=== PATIENT | female | born 1960 | race Asian ===

== ENCOUNTER 2018-10-27 17:24 | Emergency (ER) | payer BC ==
[~2018-10-27] VITALS: Ht 162.6 cm; Wt 65.8 kg
[2018-10-27 17:27] VITALS: BP_SYST 155
--- NOTE | 2018-10-27 17:35 | NUR ---
Patient to ER bed 04 to gown for evaluation. Side rails up.
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
[2018-10-27] MEDS ORDERED: MECLIZINE HCL 25 MG TABLET (ANITVERT) PO ONE (17:45)
[2018-10-27] MEDS ORDERED: LORazepam 1 MG TABLET PO ONE (17:45)
--- NOTE | 2018-10-27 17:45 | NUR ---
Dr Kong at bedside examining patient.
--- NOTE | 2018-10-27 18:05 | NUR ---
Pt off the unit for CT
[2018-10-27] MEDS ORDERED: ONDANSETRON 4 MG ODT TAB PO ONE (18:15)
--- NOTE | 2018-10-27 18:15 | NUR ---
Pt returned from CT, emesis x [address], MD notified
--- NOTE | 2018-10-27 18:22 | NUR ---
Pt medicated for N/V as ordered, well tolerated.
[2018-10-27 18:30] LABS: BASOPHILS % (AUTO) 0.3 % (0.0-2.0); EOSINOPHILS % (AUTO) 0.4 % (0.0-4.0); HEMATOCRIT 40.4 % (36-48); HEMOGLOBIN 13.6 g/dL (12.0-16.0); LYMPHOCYTES # (AUTO) 1.3 K/uL (1.0-5.5); LYMPHOCYTES % (AUTO) 19.4 % (20.5-51.5); MEAN CORPUSCULAR HEMOGLOBIN 31 pg (27-31); MEAN CORPUSCULAR HGB CONC 34 % (32-36); MEAN CORPUSCULAR VOLUME 92 fL (79.0-98.0); MONOCYTES # (AUTO) 0.3 K/uL (0.0-1.0); MONOCYTES % (AUTO) 4.2 % (1.7-9.3); NEUTROPHILS # (AUTO) 5.2 K/uL (1.8-7.7); NEUTROPHILS % (AUTO) 75.7 % (40.0-70.0); PLATELET COUNT (AUTO) 269 K/uL (130-430); RED BLOOD CELL COUNT(AUTO) 4.37 MIL/uL (4.2-6.2); WHITE BLOOD COUNT (AUTO) 6.8 K/uL (4.8-10.8)
[2018-10-27 18:33] LABS: CALCIUM 9.2 mg/dL (8.4-11.0); POTASSIUM 3.5 mmol/L (3.5-5.1)
[2018-10-27 18:40] LABS: ALBUMIN 3.5 g/dL (3.4-4.8); TOTAL BILIRUBIN 0.4 mg/dL (0.0-1.0)
--- NOTE | 2018-10-27 19:13 | NUR ---
Josh echeverria in ED - 10/27/18 at 1914 by [email or web address] Pt states she feel better after Zofran adinistration , VSS.
--- NOTE | 2018-10-27 19:13 | NUR ---
Pt states she feels better after zofran administration , VSS.family at bedside
--- NOTE | 2018-10-27 19:19 | NUR ---
Report given to Don MORILLO.
--- NOTE | 2018-10-27 19:30 | NUR ---
Pt verbalizes improvement in s/s. No needs verbalized, VSS, NAD.
[2018-10-27 19:42] VITALS: BP_SYST 148
--- NOTE | 2018-10-27 19:42 | NUR ---
Patient given written and verbal discharge instructions and verbalizes understanding. ER MD discussed with patient the results and treatment provided. Patient in stable condition. ID arm band removed. Rx of Tramadol and Zofran given. Patient educated on pain management and to follow up with PMD. Pain Scale 0/10. Opportunity for questions provided and answered. Medication side effect fact sheet provided.
== END 2018-10-27 19:42 | disposition home or self-care (01) ==
LOC: SED 17:24
DX: H81.10 Benign paroxysmal vertigo, unspecified ear (principal); H21.02 Hyphema, left eye
CPT/HCPCS: 36415; 70450; 80053; 84484; 85025; 93005; 99284; J8597; Q0162